=== PATIENT | female | born 1960 | race Caucasian/White ===

== ENCOUNTER 2019-03-18 07:48 | Emergency (ER) | payer BC, SELFPAY ==
[2019-03-18 07:52] VITALS: BP 140/79; PULSE 72; RESP 16; TEMP 36.7; O2SAT 97; BMI 25.8
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
[2019-03-18] MEDS: Diphth,Pertuss(Acell),Tet Vac 0.5 ML Vial IM (08:51)
== END 2019-03-18 09:13 | disposition home or self-care (01) ==
PROVIDERS: Emergency Provider Emergency Medicine
DX: S61.411A Laceration without foreign body of right hand, initial encounter (principal); S60.211A Contusion of right wrist, initial encounter; S20.219A Contusion of unspecified front wall of thorax, initial encounter; Z23 Encounter for immunization; V43.52XA Car driver injured in collision with other type car in traffic accident, initial encounter; Y93.I9 Activity, other involving external motion; Y92.410 Unspecified street and highway as the place of occurrence of the external cause; Y99.8 Other external cause status
CPT/HCPCS: 12001; 71046; 73110; 90471; 90715; 99285